=== PATIENT | female | born 1975 | race Caucasian/White ===

== ENCOUNTER 2017-02-05 06:44 | Emergency (ER) | payer OTHER ==
[2017-02-05 06:57] VITALS: BP 138/93
--- NOTE | 2017-02-05 07:06 | ED Physician Documentation ---
PD HPI SKIN - Stated complaint Stated Complaint: TOE SWOLLEN - Chief complaint Chief Complaint: Wound - History obtained from History obtained from: Patient - History of Present Illness Timing - duration: Days Timing - details: Gradual onset, Still present Location: RLE (great toe nailbed corner. Progressive redness and tender, with mild discharge.) Quality / character: Painful, Discolored (red), Swelling, Draining Associated symptoms: No: Fever, N/V/D Similar symptoms before: Has not had sx before Recently seen: Not recently seen Review of Systems Constitutional: denies: Fever, Chills GI: denies: Nausea, Vomiting, Diarrhea PD PAST MEDICAL HISTORY - Past Medical History Past Medical History: Yes Cardiovascular: Hypertension Respiratory: None Neuro: Headache/migraine Endocrine/Autoimmune: None GI: None : None HEENT: Other Psych: None Musculoskeletal: None Derm: None - Past Surgical History 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 HEENT: Tonsil/Adenoidectomy - Present Medications Home Medications: Ambulatory Orders Medication Instructions Recorded Confirmed Topiramate [Topamax] 50 mg PO BID 02/27/14 02/05/17 Furosemide [Lasix] 20 mg PO DAILY 02/05/17 02/05/17 Potassium Chloride 10 meq PO DAILY 02/05/17 02/05/17 Sulfamethox/Trimeth 800/160 1 each PO BID #10 tablet 02/05/17 [Bactrim Ds 800/160] Triamterene/Hydrochlorothiazid 1 tab PO DAILY 02/05/17 02/05/17 [Triamterene-Hctz 37.5-25 mg Tb] - Allergies Allergies/Adverse Reactions: Allergies Allergy/AdvReac Type Severity Reaction Status Date / Time chlorpromazine HCl * AdvReac Intermediate Hallucinati Verified 02/05/17 06:50 [From Thorazine] ons codeine AdvReac Intermediate Itching Verified 02/05/17 06:50 prochlorperazine edisylate * AdvReac Intermediate Hallucinati Verified 02/05/17 06:50 [From Compazine] ons prochlorperazine maleate * AdvReac Intermediate Hallucinati Verified 02/05/17 06 :50 [From Compazine] ons promethazine HCl * AdvReac Intermediate Emesis Verified 02/05/17 06:50 [From Phenergan] - Social History Does the pt smoke?: No Smoking Status: Never smoker Does the pt drink ETOH?: No Does the pt have substance abuse?: No - Immunizations Immunizations are current?: Yes - POLST Patient has POLST: No PD ED PE NORMAL - Vitals Vital signs reviewed: Yes - General General: Alert and oriented X 3, No acute distress, Well developed/nourished - Derm Derm: Normal color, Warm and dry, Other (right great toenail bed corner with redness and swelling, no fluctuance. There is mild ingrown corner of the nail, which I trimmed without needing anesth. No proximal streaking nor tenderness to the foot, but the redness does extend in the soft tissue of the distal phalanx. ) Results - Vitals Vitals: Vital Signs - 24 hr 02/05/17 06:49 Temperature 36.1 C L Heart Rate 107 H Respiratory 18 Rate Blood Pressure 138/93 H O2 Saturation 97 Oxygen O2 Source Room air Departure - Departure Disposition: 01 Home, Self Care Clinical Impression: Paronychia, toe Qualifiers: Laterality: right Qualified Code(s): L03.031 - Cellulitis of right toe Condition: Stable Record reviewed to determine appropriate education?: Yes Instructions: ED Fingernail Infec Follow-Up: THAI GUY [Primary Care Provider] - Prescriptions: Sulfamethox/Trimeth 800/160 [Bactrim Ds 800/160] 1 each PO BID #10 tablet Comments: Continue soaking the toe in warm water 2-3 times a day. He can apply antibiotic ointment to it as well. With the ingrown part of the nail out, the irritation should improve and allow the infection to clear easier. Bactrim twice daily for 4-5 days antibiotic for the infection. Recheck if not better over the next 2-3 days and sooner if worse. Tylenol or ibuprofen if needed for pain.
[2017-02-05] MEDS ORDERED: SULFAMETH/TRIMETH DS 800/160 MG TABLET PO STA (07:21)
[2017-02-05] MEDS ORDERED: SULFAMETH/TRIMETH DS 800/160 MG TABLET PO ONE (07:30)
== END 2017-02-05 07:29 | disposition home or self-care (01) ==
LOC: ED 06:44
DX: L03.031 Cellulitis of right toe (principal)
CPT/HCPCS: 99283; A9270

== ENCOUNTER 2017-04-09 10:44 | Emergency (ER) | payer OTHER ==
[2017-04-09] MEDS ORDERED: DEXAMETHASONE 10 MG/ML VIAL PO STA (11:06)
[2017-04-09] MEDS ORDERED: DEXAMETHASONE 10 MG/ML VIAL ONE (11:18)
--- NOTE | 2017-04-09 11:19 | ED Physician Documentation ---
PD HPI URI - Stated complaint Stated Complaint: THROAT PX/NO VOICE - Chief complaint Chief Complaint: Heent - History obtained from History obtained from: Patient, Family - History of Present Illness Timing - onset: Yesterday Timing duration: Days (1) Timing details: Gradual onset, Still present Associated symptoms: Nasal congestion, Rhinorrhea, Sore throat, Dry cough, Other (loss of voice) Contributing factors: Sick contact (children at home are sick with cough) Improves by: Rest, Medication Worsened by: Activity Similar symptoms before: Diagnosis (URI and OM) Recently seen: Not recently seen - Additional information Additional information: 41-year-old female with permanent PE tubes in her ears as developed a cough congestion and loss of voice. Review of Systems Constitutional: denies: Fever Eyes: denies: Decreased vision Ears: denies: Ear pain Nose: reports: Rhinorrhea / runny nose, Congestion Throat: reports: Sore throat Cardiac: denies: Chest pain / pressure, Palpitations Respiratory: reports: Cough. 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 HEENT: Tonsil/Adenoidectomy - Present Medications Home Medications: Ambulatory Orders Medication Instructions Recorded Confirmed Topiramate [Topamax] 50 mg PO BID 02/27/14 04/09/17 Furosemide [Lasix] 10 mg PO DAILY 02/05/17 04/09/17 Potassium Chloride 10 meq PO DAILY 02/05/17 04/09/17 Sulfamethox/Trimeth 800/160 1 each PO BID #10 tablet 02/05/17 04/09/17 [Bactrim Ds 800/160] Triamterene/Hydrochlorothiazid 1 tab PO DAILY 02/05/17 04/09/17 [Triamterene-Hctz 37.5-25 mg Tb] Amox/Clav 875/125 [Augmentin] 1 each PO Q12H #20 tablet 04/09/17 - Allergies Allergies/Adverse Reactions: Allergies Allergy/AdvReac Type Severity Reaction Status Date / Time chlorpromazine HCl * AdvReac Intermediate Hallucinati Verified 04/09/17 10:50 [From Thorazine] ons codeine AdvReac Intermediate Itching Verified 04/09/17 10:50 prochlorperazine edisylate * AdvReac Intermediate Hallucinati Verified 04/09/17 10:50 [From Compazine] ons prochlorperazine maleate * AdvReac Intermediate Hallucinati Verified 04/09/17 10 :50 [From Compazine] ons promethazine HCl * AdvReac Intermediate Emesis Verified 04/09/17 10:50 [From Phenergan] - Social History Does the pt smoke?: No Smoking Status: Never smoker Does the pt drink ETOH?: No Does the pt have substance abuse?: No - Immunizations Immunizations are current?: Yes - POLST Patient has POLST: No PD ED PE NORMAL - Vitals Vital signs reviewed: Yes (Tachycardic and hypertensive) - General General: Alert and oriented X 3, No acute distress, Well developed/nourished - HEENT HEENT: Atraumatic, PERRL, EOMI, Moist mucous membranes, Dentition benign, Other (The left TM is with a PE tube in without drainage and there is surrounding erythema to the TM. The right has a PE tube and there is no drainage from the tube and there is drainage around the outside of the tube and inflammation of the TM. Pharynx is with mild erythema.) - Neck Neck: Supple, no meningeal sign, No bony TTP - Cardiac Cardiac: RRR, No murmur - Respiratory Respiratory: No respiratory distress, Clear bilaterally - Abdomen Abdomen: Soft, Non tender - Derm Derm: Normal color, Warm and dry, No rash - Extremities Extremities: No deformity, No edema - Neuro Neuro: No motor deficit, No sensory deficit - Psych Psych: Normal mood, Normal affect Results - Vitals Vitals: Vital Signs - 24 hr 04/09/17 04/09/17 10:48 11:32 Temperature 36.0 C L 36.7 C Heart Rate 106 H 103 H Respiratory 18 18 Rate Blood Pressure 130/93 H 136/94 H O2 Saturation 98 96 Oxygen O2 Source Room air PD MEDICAL DECISION MAKING - ED course Complexity details: reviewed old records, reviewed results, re-evaluated patient , considered differential, d/w patient, d/w family ED course: 41-year-old female has lost her voice and has bilateral otitis. She is administered dexamethasone here in the emergency department and we will put her on some antibiotic for otitis. Departure - Departure Disposition: 01 Home, Self Care Clinical Impression: Otitis media, Laryngitis Condition: Stable Instructions: ED Laryngitis, ED Otitis Media Acute Adult Follow-Up: THAI GUY [Primary Care Provider] - Prescriptions: Amox/Clav 875/125 [Augmentin] 1 each PO Q12H #20 tablet Comments: Today in the Emergency Department your blood pressure was elevated. This can happen from the stress of the visit itself, from a current illness or circumstance or from uncontrolled hypertension. If you take blood pressure medications take your usual mediations, have your blood pressure re-checked in an appropriate setting and follow up any elevation with your primary care doctor.
[2017-04-09 11:33] VITALS: BP 136/94
[2017-04-09 11:43] LABS: RAPID STREP SCREEN REAGENT QC YELLOW (YELLOW)
== END 2017-04-09 11:49 | disposition home or self-care (01) ==
LOC: ED 10:44
DX: H66.93 Otitis media, unspecified, bilateral (principal); J04.0 Acute laryngitis; I10 Essential (primary) hypertension; Z96.22 Myringotomy tube(s) status
CPT/HCPCS: 87070; 87430; 99283

== ENCOUNTER 2018-08-12 14:40 | Emergency (ER) | payer OTHER ==
[2018-08-12] MEDS ORDERED: DEXAMETHASONE 10 MG/ML VIAL PO STA (16:18)
--- NOTE | 2018-08-12 16:21 | ED Physician Documentation ---
PD HPI HEENT - Stated complaint Stated Complaint: EAR PAIN/DIZZY - Chief complaint Chief Complaint: Heent - History obtained from History obtained from: Patient, Family - History of Present Illness Timing - onset: How many months ago (1-2) Timing - duration: Months (1) Timing - details: Gradual onset, Still present, Waxing and waning Location: Left ear Improves: Medication Worsens: Swalllowing, Noise Associated symptoms: Congestion, Rhinorrhea, Swollen nodes, Facial swelling, Cough Similar symptoms before: Diagnosis (OM) Recently seen: Not recently seen - Additional information Additional information: 42-year-old female with a long history of otitis media has had multiple sets of tubes in and she does have an active set of tubes in now. She is usually seen for her ears at [facility]. She has had good luck at controlling her symptoms for some time now until about 1 or 2 months ago. Her family has been ill and she has been ignoring her health somewhat. She has developed a cough congestion ear drainage ear pain and dizziness. She has had these typical symptoms previously with infections. Review of Systems Constitutional: reports: Myalgias, Fatigue. denies: Fever Eyes: denies: Decreased vision Ears: reports: Ear pain, Drainage/discharge Nose: reports: Rhinorrhea / runny nose, Congestion Throat: denies: Sore throat Cardiac: denies: Chest pain / pressure, Palpitations Respiratory: reports: Cough. 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/Adenoidectomy - Present Medications Home Medications: Ambulatory Orders Medication Instructions Recorded Confirmed Topiramate [Topamax] 50 mg PO BID 02/27/14 04/09/17 Furosemide [Lasix] 10 mg PO DAILY 02/05/17 04/09/17 RX: Potassium Chloride 10 meq PO DAILY 02/05/17 04/09/17 Sulfamethox/Trimeth 800/160 1 each PO BID #10 tablet 02/05/17 04/09/17 [Bactrim Ds 800/160] Triamterene/Hydrochlorothiazid 1 tab PO DAILY 02/05/17 04/09/17 [Triamterene-Hctz 37.5-25 mg Tb] Amox/Clav 875/125 [Augmentin] 1 each PO Q12H #20 tablet 04/09/17 Amox/Clav 875/125 [Augmentin] 1 each PO Q12H #20 tablet 08/12/18 Hydrocodone/Acetaminophen 1 - 2 each PO Q6H PRN #14 tablet 08/12/18 [Hydrocodon-Acetaminophen 5-325] - Allergies Allergies/Adverse Reactions: Allergies Allergy/AdvReac Type Severity Reaction Status Date / Time chlorpromazine HCl * AdvReac Intermediate Hallucinati Verified 08/12/18 14:49 [From Thorazine] ons codeine AdvReac Intermediate Itching Verified 08/12/18 14:49 prochlorperazine edisylate * AdvReac Intermediate Hallucinati Verified 08/12/18 14:49 [From Compazine] ons prochlorperazine maleate * AdvReac Intermediate Hallucinati Verified 08/12/18 14:49 [From Compazine] ons promethazine HCl * AdvReac Intermediate Emesis Verified 08/12/18 14:49 [From Phenergan] - Social History Does the pt smoke?: No Smoking Status: Never smoker Does the pt drink ETOH?: No Does the pt have substance abuse?: No - Immunizations Immunizations are current?: Yes - POLST Patient has POLST: No PD ED PE NORMAL - Vitals Vital signs reviewed: Yes (tachy and hypertensive ) - General General: Alert and oriented X 3, No acute distress, Well developed/nourished - HEENT HEENT: Atraumatic, PERRL, EOMI, Other (The left TM is inflamed and distorted and there is a tube present that is in position but does not appear to be draining at the current time. The pharynx is with inflamation. 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, No motor deficit, No sensory deficit, Normal speech Eye Opening: Spontaneous Motor: Obeys Commands Verbal: Oriented GCS Score: 15 - Psych Psych: Normal mood, Normal affect Results - Vitals Vitals: Vital Signs - 24 hr 08/12/18 08/12/18 14:48 16:57 Temperature 36.2 C L 36.5 C Heart Rate 120 H 94 Respiratory 18 18 Rate Blood Pressure 140/100 H 134/93 H O2 Saturation 96 99 Oxygen O2 Source Room air PD MEDICAL DECISION MAKING - ED course Complexity details: reviewed old records, considered differential, d/w patient, d/w family ED course: 42-year-old female with a history of otitis recurrent status post tube placement has a new infection today and her left tube does not appear to be draining anything despite an active infection. She is administered dezamethasone 10 mg orally we will place her on some Augmentin and she will follow-up with her ENT. She does appear a bit dehydrated today as well she is encouraged to hydrate excessively. Departure - Departure Disposition: 01 Home, Self Care Clinical Impression: Otitis media Condition: Stable Instructions: ED Otitis Media Acute Adult Follow-Up: THAI GUY [Primary Care Provider] - Prescriptions: Amox/Clav 875/125 [Augmentin] 1 each PO Q12H #20 tablet Hydrocodone/Acetaminophen [Hydrocodon-Acetaminophen 5-325] 1 - 2 each PO Q6H PRN #14 tablet PRN Reason: pain Discharge Date/Time: 08/12/18 16:57
[2018-08-12 16:58] VITALS: BP 134/93
== END 2018-08-12 16:57 | disposition home or self-care (01) ==
LOC: ED 14:40
DX: H66.92 Otitis media, unspecified, left ear (principal); J02.9 Acute pharyngitis, unspecified; E86.0 Dehydration; I10 Essential (primary) hypertension
CPT/HCPCS: 99283

== ENCOUNTER 2018-09-07 16:21 | Emergency (ER) | payer OTHER ==
[2018-09-07] MEDS ORDERED: BENZONATATE 100 MG CAPSULE PO STA (18:41)
[2018-09-07] MEDS ORDERED: DEXAMETHASONE 10 MG/ML VIAL PO STA (18:41)
[2018-09-07] MEDS ORDERED: HYDROcod/ACETAM 5/325 MG TABLET PO STA (18:41)
[2018-09-07] MEDS ORDERED: DOXYCYCLINE 100 MG TABLET PO STA (18:41)
--- NOTE | 2018-09-07 18:42 | ED Physician Documentation ---
PD HPI URI - Stated complaint Stated Complaint: COUGH/BILAT EAR PX - Chief complaint Chief Complaint: General - History obtained from History obtained from: Patient - History of Present Illness Timing - onset: How many weeks ago (2-3 weeks of congestion and sinus pressure. Had abx with some improvement but not complete, then given steroids. Finished them without improvement either. Purulent discharge. Frontal headache.) Timing duration: Weeks Timing details: Gradual onset, Waxing and waning Associated symptoms: Nasal congestion, Sinus pain, Sore throat. 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 HEENT: Tonsil/Adenoidectomy - Present Medications Home Medications: Ambulatory Orders Medication Instructions Recorded Confirmed Topiramate [Topamax] 50 mg PO BID 02/27/14 04/09/17 Furosemide [Lasix] 10 mg PO DAILY 02/05/17 04/09/17 Potassium Chloride 10 meq PO DAILY 02/05/17 04/09/17 Sulfamethox/Trimeth 800/160 1 each PO BID #10 tablet 02/05/17 04/09/17 [Bactrim Ds 800/160] Triamterene/Hydrochlorothiazid 1 tab PO DAILY 02/05/17 04/09/17 [Triamterene-Hctz 37.5-25 mg Tb] Amox/Clav 875/125 [Augmentin] 1 each PO Q12H #20 tablet 04/09/17 Amox/Clav 875/125 [Augmentin] 1 each PO Q12H #20 tablet 08/12/18 Hydrocodone/Acetaminophen 1 - 2 each PO Q6H PRN #14 tablet 08/12/18 [Hydrocodon-Acetaminophen 5-325] Albuterol Sulf [Ventolin Hfa 2 - 3 puffs INH Q4HR PRN #1 inhaler 09/07/18 Inhaler] Benzonatate [Tessalon Perle] 100 - 200 mg PO TID PRN #30 capsule 09/07/18 Cetirizine [ZyrTEC] 10 mg PO DAILY #15 tablet 09/07/18 Dexamethasone [Decadron] 4 mg PO DAILY #5 tablet 09/07/18 Doxycycline Hyclate 100 mg PO BID #20 capsule 09/07/18 - Allergies Allergies/Adverse Reactions: Allergies Allergy/AdvReac Type Severity Reaction Status Date / Time chlorpromazine HCl * AdvReac Intermediate Hallucinati Verified 09/07/18 16:44 [From Thorazine] ons codeine AdvReac Intermediate Itching Verified 09/07/18 16:44 prochlorperazine edisylate * AdvReac Intermediate Hallucinati Verified 09/07/18 16:44 [From Compazine] ons prochlorperazine maleate * AdvReac Intermediate Hallucinati Verified 09/07/18 16:44 [From Compazine] ons promethazine HCl * AdvReac Intermediate Emesis Verified 09/07/18 16:44 [From Phenergan] - Social History Does the pt smoke?: No Smoking Status: Never smoker Does the pt drink ETOH?: No Does the pt have substance abuse?: No - Immunizations Immunizations are current?: Yes - POLST Patient has POLST: No PD ED PE NORMAL - Vitals Vital signs reviewed: Yes - General General: Alert and oriented X 3, No acute distress, Well developed/nourished - HEENT HEENT: Moist mucous membranes, Pharynx benign, Other (sinus tenderness to percussion. ) - Neck Neck: Supple, no meningeal sign, No adenopathy - Cardiac Cardiac: RRR, No murmur - Respiratory Respiratory: Clear bilaterally - Abdomen Abdomen: Soft, Non tender - Derm Derm: Normal color, Warm and dry - Extremities Extremities: No edema, No calf tenderness / cord - Neuro Neuro: Alert and oriented X 3, No motor deficit, Normal speech Results - Vitals Vitals: Vital Signs - 24 hr 09/07/18 09/07/18 16:42 18:58 Temperature 37.6 C H 37.8 C H Heart Rate 116 H 114 H Respiratory 20 22 Rate Blood Pressure 148/74 H 132/85 H O2 Saturation 98 99 Oxygen O2 Source Room air PD MEDICAL DECISION MAKING - ED course Complexity details: considered differential (sounds like persistent sinusitiis.), d/w patient Departure - Departure Disposition: 01 Home, Self Care Clinical Impression: Ear infection Upper respiratory infection Qualifiers: URI type: unspecified URI Qualified Code(s): J06.9 - Acute upper respiratory infection, unspecified Condition: Stable Record reviewed to determine appropriate education?: Yes Instructions: ED Otitis Media Acute Adult, ED URI Viral W Wheezing Follow-Up: THAI GUY [Primary Care Provider] - Prescriptions: Albuterol Sulf [Ventolin Hfa Inhaler] 2 - 3 puffs INH Q4HR PRN #1 inhaler PRN Reason: Shortness Of Air/Wheezing Benzonatate [Tessalon Perle] 100 - 200 mg PO TID PRN #30 capsule PRN Reason: Cough Cetirizine [ZyrTEC] 10 mg PO DAILY #15 tablet Dexamethasone [Decadron] 4 mg PO DAILY #5 tablet Doxycycline Hyclate 100 mg PO BID #20 capsule Comments: Stay well-hydrated. Tylenol if needed for fevers and pains. Puffs 4 times a day for the next 7-10 days and extra times as needed for wheezing and cough. Decadron steroid daily for 5 days for inflammation of the bronchials. Add doxycycline antibiotic for infection of the bronchials and ears. Tessalon if needed for cough. Cetirizine antihistamine to decrease the fluid pressure in the ears and sinuses. Recheck if not improved over the next several days. Discharge Date/Time: 09/07/18 19:22
[2018-09-07 18:59] VITALS: BP 132/85
== END 2018-09-07 19:22 | disposition home or self-care (01) ==
LOC: ED 16:21
DX: H66.90 Otitis media, unspecified, unspecified ear (principal); J06.9 Acute upper respiratory infection, unspecified; I10 Essential (primary) hypertension
CPT/HCPCS: 99283; A9270

== ENCOUNTER 2020-10-19 05:10 | Emergency (ER) | payer OTHER ==
[2020-10-19 05:24] VITALS: BP 109/77
--- OUTSIDE RECORDS SUMMARY | 2020-10-19 05:25 | EXTERNAL MEDICAL SUMMARY RPT | Continuity of Care Document ---
:1975 Demographics Phone Unavailable Preferred Language Unknown Marital Status Unknown [employer] Affiliation Unknown Race Unknown Ethnic Group Unknown Author Organization [facility] Address [address] [place] [address] Phone Social History date description facility [id number]
--- NOTE | 2020-10-19 05:59 | ED Physician Documentation ---
PD HPI OPHTHO - Stated complaint Stated Complaint: BILAT EYE IRRITATION - Chief complaint Chief Complaint: Heent - History obtained from History obtained from: Patient - History of Present Illness Timing - onset: How many weeks ago (1) Timing - duration: Weeks (1) Timing - details: Gradual onset, Still present Location: Both Quality / character: Itching, Other (watering and matted shut) Associated symptoms: Tearing, Matting, FB sensation. No: Redness, Photophobia, Double vision, Decreased vision, Loss of vision, Headache Contributing factors: Wears glasses Similar symptoms before: Has not had sx before Recently seen: Not recently seen - Treatment prior to arrival Treatment prior to arrival: Previously well 45-year-old female has developed tearing from her right eye about 1 week ago and she then developed yellow drainage from both of her eyes and yesterday the drainage became more profuse early this morning she awoke with her eyes matted shut. She has come to the emergency department for treatment. Review of Systems Constitutional: denies: Fever Eyes: reports: Discharge, Irritation. 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 HEENT: Tonsil/Adenoidectomy - Present Medications Home Medications: Ambulatory Orders Medication Instructions Recorded Confirmed Topiramate [Topamax] 50 mg PO BID 02/27/14 04/09/17 Furosemide [Lasix] 10 mg PO DAILY 02/05/17 04/09/17 Potassium Chloride 10 meq PO DAILY 02/05/17 04/09/17 Sulfamethox/Trimeth 800/160 1 each PO BID #10 tablet 02/05/17 04/09/17 [Bactrim Ds 800/160] Triamterene/Hydrochlorothiazid 1 tab PO DAILY 02/05/17 04/09/17 [Triamterene-Hctz 37.5-25 mg Tb] Amox/Clav 875/125 [Augmentin] 1 each PO Q12H #20 tablet 04/09/17 Amox/Clav 875/125 [Augmentin] 1 each PO Q12H #20 tablet 08/12/18 Hydrocodone/Acetaminophen 1 - 2 each PO Q6H PRN #14 tablet 08/12/18 [Hydrocodon-Acetaminophen 5-325] Albuterol Sulf [Ventolin Hfa 2 - 3 puffs INH Q4HR PRN #1 inhaler 09/07/18 Inhaler] Benzonatate [Tessalon Perle] 100 - 200 mg PO TID PRN #30 capsule 09/07/18 Cetirizine [ZyrTEC] 10 mg PO DAILY #15 tablet 09/07/18 Doxycycline Hyclate 100 mg PO BID #20 capsule 09/07/18 dexAMETHasone [Decadron] 4 mg PO DAILY #5 tablet 09/07/18 Neomycin/Poly/Dex Ophth Drops 1 drops EACHEYE QID #5 ml 10/19/20 [Maxitrol Ophth Drops] - Allergies Allergies/Adverse Reactions: Allergies Allergy/AdvReac Type Severity Reaction Status Date / Time chlorpromazine HCl * AdvReac Intermediate Hallucinati Verified 10/19/20 05:24 [From Thorazine] ons codeine AdvReac Intermediate Itching Verified 10/19/20 05:24 prochlorperazine edisylate * AdvReac Intermediate Hallucinati Verified 10/19/20 05:24 [From Compazine] ons prochlorperazine maleate * AdvReac Intermediate Hallucinati Verified 10/19/20 05:24 [From Compazine] ons promethazine HCl * AdvReac Intermediate Emesis Verified 10/19/20 05:24 [From Phenergan] - Social History Does the pt smoke?: No Smoking Status: Never smoker Does the pt drink ETOH?: No Does the pt have substance abuse?: No - Immunizations Immunizations are current?: Yes - POLST Patient has POLST: No PD ED PE NORMAL - Vitals Vital signs reviewed: Yes (normal) - General General: Alert and oriented X 3, No acute distress, Well developed/nourished - HEENT HEENT: Atraumatic, PERRL, EOMI, Other (There is conjunctival irritation and drainage there is not a lot of injection to the sclera. Iris is symmetric pupils are reactive. 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, No motor deficit, No sensory deficit, Normal speech Eye Opening: Spontaneous Motor: Obeys Commands Verbal: Oriented GCS Score: 15 - Psych Psych: Normal mood, Normal affect Results - Vitals Vitals: Vital Signs - 24 hr 10/19/20 05:15 Temperature 36.3 C L Heart Rate 94 Respiratory 16 Rate Blood Pressure 109/77 O2 Saturation 100 Oxygen O2 Source Room air PD MEDICAL DECISION MAKING - ED course Complexity details: considered differential, d/w patient ED course: 45-year-old female who is developed acute conjunctivitis and has had her eyes matted shut is treated for conjunctivitis Departure - Departure Disposition: 01 Home, Self Care Clinical Impression: Conjunctivitis Qualifiers: Conjunctivitis type: acute Acute conjunctivitis type: bacterial Laterality: bilateral Qualified Code(s): H10.33 - Unspecified acute conjunctivitis, bilateral Condition: Stable Instructions: ED Conjunctivitis Bacterial Follow-Up: LOLIS TRAN DO [Primary Care Provider] - Prescriptions: Neomycin/Poly/Dex Ophth Drops [Maxitrol Ophth Drops] 1 drops EACHEYE QID #5 ml
== END 2020-10-19 06:10 | disposition home or self-care (01) ==
LOC: ED 05:10
DX: H10.33 Unspecified acute conjunctivitis, bilateral (principal); I10 Essential (primary) hypertension
CPT/HCPCS: 99282; 99284

== ENCOUNTER 2021-09-10 08:15 | Outpatient (CLI) | payer OTHER ==
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
[2021-09-10 09:24] VITALS: BP 130/97
== END 2021-09-10 08:16 | disposition home or self-care (01) ==
LOC: SC 08:15
PROVIDERS: ATTEND Nurse Practitioner Family
DX: R06.83 Snoring (principal); G47.8 Other sleep disorders; R06.81 Apnea, not elsewhere classified; G47.10 Hypersomnia, unspecified; R53.83 Other fatigue; I49.9 Cardiac arrhythmia, unspecified; E66.9 Obesity, unspecified; Z68.35 Body mass index [BMI] 35.0-35.9, adult
CPT/HCPCS: 99203; 99212

== ENCOUNTER 2021-10-06 08:51 | Outpatient (CLI) | payer OTHER ==
--- NOTE | 2021-10-06 09:22 | SLEEP CARE CONSULTATION ---
Information from patient questionnaire entered by Higinio Rao MA. I have reviewed and concur with the information entered by Higinio Rao MA. This document represents the service I personally performed and the decisions made by , Zoraida Olmstead ARNP. History of Present Illness Service Date and Time: 10/06/2021 0851 Accompanied by: Spouse Initial [place] Sleepiness Scale score: 7 (08/2021) Current [place] Sleepiness Scale score: 5 (09/2021) Additional HPI information: YUNI GARCIA returns for follow up with spouse and results of the recently performed home sleep study. I explained the pathophysiology behind obstructive sleep apnea. We then spent quite a bit of time discussing different treatment options. For mild obstructive sleep apnea, surgery and oral appliance are alternatives to nasal CPAP therapy but in moderate or severe cases, nasal CPAP is the most effective and reliable treatment. Because apnea is primarily in supine position, then positional management therapy could be effective. Methods discussed such as positioning with pillows to prevent supine sleep. I reviewed the impact of weight changes on sleep apnea and strongly recommended losing weight. After some discussion, the patient opted to go with the nasal CPAP therapy. Nasal autoCPAP set at 4-15 cmH20 will be ordered with rationale explained. A manual titration study will be ordered if unable to find optimal pressure with office adjustments. I explained how CPAP machine works and what to expect when using the machine. Using CPAP every night in order to get used to it was emphasized. Patient advised to put CPAP mask on before getting into bed so as not to fall asleep without CPAP. To assist acclimation to CPAP use, it could also be used for a short time during day while reading or watching TV. The patient was instructed to call the CPAP supplier to discuss any mechanical problem that may occur. If the mask given is uncomfortable or is difficult to keep on through the night even with adjustment, contact the CPAP supplier as many will replace with another mask style if notified before 30 days. If snoring or perceives is not getting enough air or too much air from the machine, notify this office. AAS patient education PAP tips reviewed and given to patient. Patient does not drink alcohol. Patient was cautioned about risks of drowsy driving until sleepiness symptoms resolve. Patient denies drowsy driving. Sleep Study - Results Type of Sleep Study: Home sleep study (f/u home study, 09/24/21 [facility] Prior sleep studies: No Polysomnography/Home Sleep Study results: Physician Impression: The quality of the study is good. The length of the study is adequate (> 240 minutes). Please also see the tabulated and graphic data. 1. Obstructive Sleep Apnea-Hypopnea (ICD-10 G47.33), mild, with an AHI of 8.7/hr and darshana SaO2 of 86%. During the study, the patient had 71 apneas (71 obstructive, 0 central, 0 mixed) and 19 hypopneas. The longest episode lasted 83.5 seconds. The patient barely slept supine (supine AHI was 36.4 and non-supine, 8.59). 2. Hypoxemia (ICD-10 R09.02), minimal, with the lowest oxygen saturation of 86 % and 0.5 minutes with SaO2 under 90%. Baseline oxygen saturation was normal (Average oxygen saturation was 95%). Allergies and Home Medications Home medication list reviewed: Yes (no changes) Allergy and home medication list: Allergies chlorpromazine HCl * [From Thorazine] Adverse Reaction (Intermediate, Verified 10/19/20 05:24) Hallucinations codeine Adverse Reaction (Intermediate, Verified 10/19/20 05:24) Itching prochlorperazine edisylate * [From Compazine] Adverse Reaction (Intermediate, Verified 10/19/20 05:24) Hallucinations prochlorperazine maleate * [From Compazine] Adverse Reaction (Intermediate, Verified 10/19/20 05:24) Hallucinations promethazine HCl * [From Phenergan] Adverse Reaction (Intermediate, Verified 10/19/20 05:24) Emesis Review of Systems Review of systems same as previous: No (strep throat) Physical Exam Vital signs obtained and entered by: Melissa RAO CMA AAMA Blood Pressure: 130/98 (RIGHT) Heart Rate: 95 O2 Saturation: 97 (PAPER) Height: 5 ft 8 in Weight: 230 lb Body Mass Index: 34.9 BMI Classification: Obese Impression and Plan 1. Obstructive Sleep Apnea-Hypopnea Syndrome, mild, with lowest oxygen sat uration of 86%. Obviously this is the cause of the patients symptoms of unrefreshed sleep, and excessive daytime sleepiness. Positive pressure therapy could benefit arrythmia, gastric reflux and cardiac disease ([place]). As mentioned above, the patient will be started on nasal autoCPAP therapy with pressure set at 4-15 cmH2O. A manual titration study will be completed if unable to find optimal treatment pressure with office adjustments. Compliance guidelines also reviewed. A copy of compliance guidelines will be given for reference at check out. Because the apnea is more severe supine, I instructed to avoid sleeping supine using pillow positioning until able to start CPAP use. * Nasal auto CPAP therapy, pressure at 4-15 cm H2O. * Attempt to lose weight. * Avoid alcohol consumption near bedtime. * Avoid supine sleep until using CPAP. * The patient is again cautioned about driving until sleepiness completely resolves. * Return one month after CPAP obtained. I will assess response to therapy and compliance at that time. Counseling Topics: Sleeping position, Weight loss health impact Visit Type: In Office Time Spent with Patient (minutes): 23 Provider Statement: I spent 100% of the Face to Face Visit with the patient with greater than 50% spent counseling the patient and coordination of care.
[2021-10-06 09:23] VITALS: BP 130/98
== END 2021-10-06 08:52 | disposition home or self-care (01) ==
LOC: SC 08:51
PROVIDERS: ATTEND Nurse Practitioner Family
DX: G47.33 Obstructive sleep apnea (adult) (pediatric) (principal); E66.9 Obesity, unspecified; Z68.34 Body mass index [BMI] 34.0-34.9, adult
CPT/HCPCS: 99212; 99213

== ENCOUNTER 2022-04-28 08:52 | Outpatient (CLI) | payer OTHER ==
[2022-04-28 09:17] VITALS: BP 126/72
--- NOTE | 2022-04-28 09:17 | SLEEP CARE CONSULTATION ---
Information from patient questionnaire entered by Rossana Orantes. I have reviewed and concur with the information entered by Rossana Orantes. This document represents the service I personally performed and the decisions made by me, Zoraida Olmstead ARNP. History of Present Illness Service Date and Time: 04/28/2022 0852 Previous diagnosis: Mild, Obstructive Sleep Apnea-Hypopnea Syndrome AHI: 8.7 Reason for follow up: six month (F/U HAS NOT GOT CPAP) Accompanied by: Spouse Equipment type: CPAP Equipment obtained from: Other ([employer] set up but did not get her a CPAP or supplies) Prior sleep studies: No Type of Sleep Study: Home sleep study (f/u home study, 09/24/21 [facility],) HPI additional information: YUNI GARCIA was diagnosed to have mild, AHI 8.7, obstructive sleep apnea-hypopnea syndrome and returned today for CPAP therapy six month follow-up. Sleep Study - Results Type of Sleep Study: Home sleep study (f/u home study, 09/24/21 [facility],) Prior sleep studies: No Subjective Initial [place] Sleepiness Scale score: 7 (08/2021) Current [place] Sleepiness Scale score: 2 (04/27/2022) Allergies and Home Medications Drug allergies reviewed: Yes (as listed) Home medication list reviewed: Yes (no changes) Allergy and home medication list: Allergies chlorpromazine HCl * [From Thorazine] Adverse Reaction (Intermediate, Verified 10/19/20 05:24) Hallucinations codeine Adverse Reaction (Intermediate, Verified 10/19/20 05:24) Itching prochlorperazine edisylate * [From Compazine] Adverse Reaction (Intermediate, Verified 10/19/20 05:24) Hallucinations prochlorperazine maleate * [From Compazine] Adverse Reaction (Intermediate, Verified 10/19/20 05:24) Hallucinations promethazine HCl * [From Phenergan] Adverse Reaction (Intermediate, Verified 10/19/20 05:24) Emesis Review of Systems Review of systems same as previous: No (neck surgery procedure -C fusion October 21, 2021) Physical Exam Vital signs obtained and entered by: ROSSANA Izquierdo MA Blood Pressure: 126/72 (left arm) Cuff size: regular Heart Rate: 122 O2 Saturation: 98 Height: 5 ft 8 in Weight: 237 lb 6.4 oz Body Mass Index: 36.1 BMI Classification: Obese Impression and Plan 1. Obstructive Sleep Apnea-Hypopnea Syndrome, mild. Patient was to start CPAP therapy after her last visit but she has been unable to get a CPAP from her chosen DME supplier. She has continually called and talked to them but was always told they did not have a CPAP for her yet. She also had neck surgery in the interim. She has been trying to sleep on her side (positional therapy) because she is less severe on her side and it is more comfortable than sleeping on her back. I will write a new prescription and have her choose a new DME supplier so that she might get started on a CPAP. Patient voiced agreement with plan. Patient's apnea severity and rationale for treatment to reduce apnea, improve sleep quality and reduce cardiovascular and cerebrovascular events was reviewed. I also reviewed the benefit of consistent device use of CPAP for cardiac disease, arrhythmia and gastric reflux. 2. Obesity, unspecified. Currently patients BMI is 36.1. Obesity increases the risk of apnea, CPAP pressure requirements and overall health risks especially cardiovascular and diabetes. Thus patient is advised to lose weight. * Nasal auto CPAP therapy, pressure at 4-15 cm H2O. * Attempt to lose weight. * Avoid supine sleep until using CPAP. * Return one month after CPAP obtained. I will assess response to therapy and compliance at that time. Counseling Topics: Weight loss health impact Prescriptions: Auto CPAP Visit Type: In Office Other Participants: Spouse/Significant Other Time Spent with Patient (minutes): 21 Provider Statement: I spent 100% of the Face to Face Visit with the patient with greater than 50% spent counseling the patient and coordination of care.
== END 2022-04-28 08:53 | disposition home or self-care (01) ==
LOC: SC 08:52
PROVIDERS: ATTEND Nurse Practitioner Family
DX: G47.33 Obstructive sleep apnea (adult) (pediatric) (principal); E66.9 Obesity, unspecified; Z68.36 Body mass index [BMI] 36.0-36.9, adult
CPT/HCPCS: 99212; 99213

== ENCOUNTER 2022-07-05 08:18 | Outpatient (CLI) | payer OTHER ==
[2022-07-05 08:58] VITALS: BP 118/74
--- NOTE | 2022-07-05 08:58 | SLEEP CARE CONSULTATION ---
Information from patient questionnaire entered by Rossana Orantes. I have reviewed and concur with the information entered by Rossana Orantes. This document represents the service I personally performed and the decisions made by me, Zoraida Olmstead ARNP. History of Present Illness Service Date and Time: 07/05/2022 0818 Previous diagnosis: Mild, Obstructive Sleep Apnea-Hypopnea Syndrome AHI: 8.7 (in 2021) Reason for follow up: first compliance Equipment type: CPAP (RESMED Airsense 10, [place] CARD NEEDED FOR DOWNLOAD AND CHANGES) Equipment obtained from: Other ([facility]; got supplies) Mask style: Nasal Backup mask available: No (will keep old mask when replaced) Last cushion change: 1 month Prior sleep studies: Yes Type of Sleep Study: Home sleep study (f/u home study, 09/24/21 [facility],) HPI additional information: YUNI GARCIA was diagnosed to have mild, AHI 8.7, obstructive sleep apnea-hypopnea syndrome and returned today for CPAP therapy first compliance follow-up. Sleep Study - Results Type of Sleep Study: Home sleep study (f/u home study, 09/24/21 [facility],) Prior sleep studies: No CPAP Compliance Data - Data Reviewed with Patient Average duration of nightly device use: 8 HRS 4 MIN Compliance rate %: 97 (05/29/22-07/04/22; 37/37 days used) Current pressure setting (cmH2O): 4-15 (median 6.4, avg 9.8, max 11.4) Average residual AHI: 3.2 Central apnea: 0.9 Obstructive apnea: 1.5 Subjective Patient concerns: reports: dry mouth, nose, throat (dry throat - she states she has chronic dry throat since before cpap), epistaxis (twice, used vaseline and has resolved). denies: aerophagia, mask discomfort, air blowing in eyes, mask leak noise, condensation in mask/hose, nasal congestion Observed to snore while using device: No Current pressure setting perceived as: comfortable On therapy, patient: reports: sleeping better, awakening more refreshed, being more awake and alert during the day, more rested overall. denies: drowsiness while driving Initial [place] Sleepiness Scale score: 7 (08/2021) Current [place] Sleepiness Scale score: 3 (07/05/22) Allergies and Home Medications Drug allergies reviewed: Yes (see list in EMR) Home medication list reviewed: Yes (no changes) Review of Systems Review of systems same as previous: Yes (no changes) Physical Exam Vital signs obtained and entered by: ROSSANA Izquierdo MA Blood Pressure: 118/74 (LEFT ARM) Cuff size: regular Heart Rate: 120 O2 Saturation: 98 Height: 5 ft 8 in Weight: 235 lb Body Mass Index: 35.7 BMI Classification: Obese Impression and Plan 1. Obstructive Sleep Apnea-Hypopnea Syndrome, mild, with good treatment complia nce and good apnea control. On CPAP therapy, the patient has better sleep quality and is more rested overall. The patients pressure will be changed to autoCPAP 8-12 cmH20 to reflect pressures being used. Patient advised to contact me if pressure change is uncomfortable so that it can be adjusted. Goals for apnea control discussed. Patient has significant improvement of their sleep apnea and are satisfied with current CPAP therapy. Patient's apnea severity and rationale for treatment to reduce apnea, improve sleep quality and reduce cardiovascular and cerebrovascular events was reviewed. I also reviewed the benefit of consistent device use of CPAP for cardiac disease, arrhythmia and gastric reflux. 2. Obesity, unspecified. Currently patients BMI is 35.7. Obesity increases the risk of apnea, CPAP pressure requirements and overall health risks especially cardiovascular and diabetes. Thus patient is advised to lose weight. * Change auto CPAP pressure to 8-12 cmH2O * Notify me if snoring with mask or feeling that the pressure is too much or too little * Attempt to lose weight * Call this office if any problems using CPAP * Return for follow up in 1-2 months, or sooner if concerns arise Counseling Topics: Spare mask, Weight loss health impact Visit Type: In Office Time Spent with Patient (minutes): 20 Provider Statement: I spent 100% of the Face to Face Visit with the patient with greater than 50% spent counseling the patient and coordination of care.
== END 2022-07-05 08:19 | disposition home or self-care (01) ==
LOC: SC 08:18
PROVIDERS: ATTEND Nurse Practitioner Family
DX: G47.33 Obstructive sleep apnea (adult) (pediatric) (principal); E66.9 Obesity, unspecified; Z68.35 Body mass index [BMI] 35.0-35.9, adult
CPT/HCPCS: 99212; 99213

== ENCOUNTER 2022-09-23 14:07 | Outpatient (CLI) | payer OTHER ==
[2022-09-23 14:53] VITALS: BP 130/78
--- NOTE | 2022-09-23 14:53 | SLEEP CARE CONSULTATION ---
Information from patient questionnaire entered by Vanessa Orantes. I have reviewed and concur with the information entered by Vanessa Orantes. This document represents the service I personally performed and the decisions made by me, Zoraida Olmstead ARNP. History of Present Illness Service Date and Time: 09/23/2022 1407 Previous diagnosis: Mild, Obstructive Sleep Apnea-Hypopnea Syndrome AHI: 8.7 (in 2021) Reason for follow up: other (2 MONTH F/U ) Accompanied by: Spouse (Filemon) Equipment type: CPAP (RESMED Airsense 10, SD CARD NEEDED FOR DOWNLOAD AND CHANGES) Equipment obtained from: Other ([facility]; getting supplies) Mask style: Nasal Mask brand: Resmed ([id number]) Backup mask available: Yes (other mask) Last cushion change: 1 week ago Prior sleep studies: No Type of Sleep Study: Home sleep study (f/u home study, 09/24/21 [facility],) HPI additional information: YUNI GARCIA was diagnosed to have mild, AHI 8.7, obstructive sleep apnea-hypopnea syndrome and returned today with spouse for CPAP therapy two month follow-up. Sleep Study - Results Type of Sleep Study: Home sleep study (f/u home study, 09/24/21 [facility],) Prior sleep studies: No CPAP Compliance Data - Data Reviewed with Patient Average duration of nightly device use: 9 hours 21 minutes Compliance rate %: 100 (60/60 days used) Current pressure setting (cmH2O): 8-12 Average residual AHI: 4.3 Central apnea: 2.1 Obstructive apnea: 1.6 Hypopnea: 0.5 Average large leak: 4.9 lpm Subjective Patient concerns: denies: aerophagia, mask discomfort, air blowing in eyes, mask leak noise, condensation in mask/hose, nasal congestion, dry mouth, nose, throat, epistaxis Observed to snore while using device: No Current pressure setting perceived as: comfortable On therapy, patient: reports: sleeping better, awakening more refreshed, being more awake and alert during the day, more rested overall. denies: drowsiness while driving Initial [place] Sleepiness Scale score: 7 (08/2021) Current [place] Sleepiness Scale score: 6 (09/23/22) Allergies and Home Medications Known drug allergies: Yes (as listed) Drug allergies reviewed: Yes Home medication list reviewed: Yes (Betahiotine for vertigo) Allergy and home medication list: Allergies chlorpromazine HCl * [From Thorazine] Adverse Reaction (Intermediate, Verified 09/22/22 17:08) Hallucinations codeine Adverse Reaction (Intermediate, Verified 09/22/22 17:08) Itching prochlorperazine edisylate * [From Compazine] Adverse Reaction (Intermediate, Verified 09/22/22 17:08) Hallucinations prochlorperazine maleate * [From Compazine] Adverse Reaction (Intermediate, Verified 09/22/22 17:08) Hallucinations promethazine HCl * [From Phenergan] Adverse Reaction (Intermediate, Verified 09/22/22 17:08) Emesis Review of Systems Review of systems same as previous: Yes (no changes) Physical Exam Vital signs obtained and entered by: VANESSA Izquierdo MA Blood Pressure: 130/78 (LEFT ARM) Cuff size: regular Heart Rate: 93 O2 Saturation: 97 Height: 5 ft 8 in Weight: 249 lb Weight change since last visit: 14 lb gain Body Mass Index: 37.8 BMI Classification: Obese Impression and Plan 1. Obstructive Sleep Apnea-Hypopnea Syndrome, mild, with good treatment compliance and good apnea control. On CPAP therapy, the patient has better sleep quality and is more rested overall. She has significant improvement of her sleep apnea and is satisfied with CPAP therapy. She has other health issues going on but is able to rest as needed with her CPAP. She denies any complaints or issues with CPAP or mask. Patient's apnea severity and rationale for treatment to reduce apnea, improve sleep quality and reduce cardiovascular and cerebrovascular events was reviewed. I also reviewed the benefit of consistent device use of CPAP for cardiac disease, arrhythmia and gastric reflux. 2. Obesity, unspecified. Currently patients BMI is 37.8. Obesity increases the risk of apnea, CPAP pressure requirements and overall health risks especially cardiovascular and diabetes. Thus patient is advised to continue to try to lose weight. * Continue auto CPAP pressure at 8-12 cmH2O * Notify me if snoring with mask or feeling that the pressure is too much or too little * Attempt to lose weight * Call this office if any problems using CPAP * Return for follow up in 3 months, or sooner if concerns arise Counseling Topics: Spare mask, Weight loss health impact Visit Type: In Office Time Spent with Patient (minutes): 12 Provider Statement: I spent 100% of the Face to Face Visit with the patient with greater than 50% spent counseling the patient and coordination of care.
== END 2022-09-23 14:08 | disposition home or self-care (01) ==
LOC: SC 14:07
PROVIDERS: ATTEND Nurse Practitioner Family
DX: G47.33 Obstructive sleep apnea (adult) (pediatric) (principal); E66.9 Obesity, unspecified; Z68.37 Body mass index [BMI] 37.0-37.9, adult
CPT/HCPCS: 99212

== ENCOUNTER 2022-12-02 09:45 | Outpatient (CLI) | payer OTHER ==
[2022-12-02 10:36] VITALS: BP 141/97
--- NOTE | 2022-12-02 10:36 | SLEEP CARE CONSULTATION ---
Information from patient questionnaire entered by Vanessa Orantes. I have reviewed and concur with the information entered by Vanessa Orantes. This document represents the service I personally performed and the decisions made by , Zoraida Olmstead ARNP. History of Present Illness Service Date and Time: 12/02/2022 0945 Previous diagnosis: Mild, Obstructive Sleep Apnea-Hypopnea Syndrome AHI: 8.7 (in 2021) Reason for follow up: three month (F/U) Equipment type: CPAP (RESMED Airsense 10, s/u 05/2022, [place] CARD NEEDED FOR DOWNLOAD AND CHANGES) Equipment obtained from: Other ([facility]; getting supplies) Mask style: Nasal (over the nose) Backup mask available: Yes (old mask) Last cushion change: weekly change Prior sleep studies: No Type of Sleep Study: Home sleep study (f/u home study, 09/24/21 [facility],) HPI additional information: YUNI GARCIA was diagnosed to have mild, AHI 8.7, obstructive sleep apnea-hypopnea syndrome and returned today for CPAP therapy three month follow-up. Sleep Study - Results Type of Sleep Study: Home sleep study (f/u home study, 09/24/21 [facility],) Prior sleep studies: No CPAP Compliance Data - Data Reviewed with Patient Average duration of nightly device use: 8 hours 2 minutes Compliance rate %: 98 (90/90 days used) Current pressure setting (cmH2O): 8-12 (95th % 11.3) Average residual AHI: 3.7 Central apnea: 0.7 Obstructive apnea: 2.4 Hypopnea: 0.5 Average large leak: 8.4 LPM Subjective Patient concerns: denies: aerophagia, mask discomfort, air blowing in eyes, mask leak noise, condensation in mask/hose, nasal congestion, dry mouth, nose, throat, epistaxis Observed to snore while using device: No Current pressure setting perceived as: comfortable On therapy, patient: reports: sleeping better, awakening more refreshed, being more awake and alert during the day, more rested overall. denies: drowsiness while driving Initial [place] Sleepiness Scale score: 7 (08/2021) Current [place] Sleepiness Scale score: 9 Allergies and Home Medications Known drug allergies: Yes (as listed) Drug allergies reviewed: Yes Home medication list reviewed: Yes (no changes) Allergy and home medication list: Allergies chlorpromazine HCl * [From Thorazine] Adverse Reaction (Intermediate, Verified 12/01/22 13:31) Hallucinations codeine Adverse Reaction (Intermediate, Verified 12/01/22 13:31) Itching prochlorperazine edisylate * [From Compazine] Adverse Reaction (Intermediate, Verified 12/01/22 13:31) Hallucinations prochlorperazine maleate * [From Compazine] Adverse Reaction (Intermediate, Verified 12/01/22 13:31) Hallucinations promethazine HCl * [From Phenergan] Adverse Reaction (Intermediate, Verified 12/01/22 13:31) Emesis Review of Systems Review of systems same as previous: Yes (Bone anchored implants over the summer/possibly fall) Physical Exam Vital signs obtained and entered by: Zoraida Mitchell NP Blood Pressure: 141/97 Cuff size: regular (left arm) Heart Rate: 105 O2 Saturation: 97 Height: 5 ft 8 in Weight: 251 lb Body Mass Index: 38.1 BMI Classification: Obese Impression and Plan 1. Obstructive Sleep Apnea-Hypopnea Syndrome, mild, with good treatment compliance and good apnea control. On CPAP therapy, the patient has better sleep quality and is more rested overall. Patient states the pressure has been comfortable but she does feel like she could use a little more pressure. Her AHI is at 3.7 and is using 11.3 cm H2O on average. The patients pressure will be changed to autoCPAP 10-14 cmH20 for patient comfort. Patient advised to contact me if pressure change is uncomfortable so that it can be adjusted. Goals for apnea control discussed. Patient's apnea severity and rationale for treatment to reduce apnea, improve sleep quality and reduce cardiovascular and cerebrovascular events was reviewed. I also reviewed the benefit of consistent device use of CPAP for cardiac disease, arrhythmia and gastric reflux. Patient is going to have bone implant surgery this summer for hearing aids. She may have to not use her machine for a couple of days but she feels she can adjust the headgear comfortably around her bandages. I advised her not to have it too tight where it is uncomfortable while she is healing. She voiced understanding and agreement. 2. Obesity, unspecified. Currently patients BMI is 38.1. Obesity increases the risk of apnea, CPAP pressure requirements and overall health risks especially cardiovascular and diabetes. Thus patient is advised to lose weight. * Change auto CPAP pressure to 10-14 cmH2O * Notify me if snoring with mask or feeling that the pressure is too much or too little * Attempt to lose weight * Call this office if any problems using CPAP * Return for follow up in 6 months, or sooner if concerns arise Counseling Topics: Spare mask, Weight loss health impact Visit Type: In Office Time Spent with Patient (minutes): 20 Provider Statement: I spent 100% of the Face to Face Visit with the patient with greater than 50% spent counseling the patient and coordination of care.
== END 2022-12-02 09:46 | disposition home or self-care (01) ==
LOC: SC 09:45
PROVIDERS: ATTEND Nurse Practitioner Family
DX: G47.33 Obstructive sleep apnea (adult) (pediatric) (principal); E66.9 Obesity, unspecified; Z68.38 Body mass index [BMI] 38.0-38.9, adult
CPT/HCPCS: 99213

== ENCOUNTER 2023-06-06 10:52 | Outpatient (CLI) | payer OTHER ==
--- NOTE | 2023-06-06 11:25 | Sleep Patient Instructions ---
Sleep Center Visit Summary - Patient Visit Information Reason for Visit: 6 month followup - Patient Instructions Additional Instructions: You were here for follow up of CPAP therapy. You will be continued on CPAP therapy with pressure at 10-14 cmH2O. You should follow up with sleep care in 12 months. You may contact us sooner for any questions or concerns. - Clinic Information Contact: Located within [facility] [address] [place] [id number] [email or web address] T: [phone]
--- NOTE | 2023-06-06 11:28 | SLEEP CARE CONSULTATION ---
Information from patient questionnaire entered by Rossana Orantes. I have reviewed and concur with the information entered by Rossana Orantes. This document represents the service I personally performed and the decisions made by me, Zoraida Olmstead ARNP. History of Present Illness Service Date and Time: 06/06/2023 1052 Previous diagnosis: Mild, Obstructive Sleep Apnea-Hypopnea Syndrome AHI: 8.7 (in 2021) Reason for follow up: six month (F/U) Accompanied by: Spouse Equipment type: CPAP (RESMED Airsense 10, s/u 05/2022, [place] CARD NEEDED FOR DOWNLOAD AND CHANGES) Equipment obtained from: Other ([facility]; getting supplies) Mask style: Nasal (over the nose) Backup mask available: Yes (other mask) Last cushion change: today, changes every 3 weeks Prior sleep studies: No Type of Sleep Study: Home sleep study (f/u home study, 09/24/21 [facility],) HPI additional information: YUNI GARCIA was diagnosed to have mild, AHI 8.7, obstructive sleep apnea-hypopnea syndrome and returned today for CPAP therapy six month follow-up. Sleep Study - Results Type of Sleep Study: Home sleep study (f/u home study, 09/24/21 [facility],) Prior sleep studies: No CPAP Compliance Data - Data Reviewed with Patient Average duration of nightly device use: 9 hours 5 minutes Compliance rate %: 99 (180/180 days used) Current pressure setting (cmH2O): 10-14 Average residual AHI: 3.8 Central apnea: 1.2 Obstructive apnea: 2.0 Average large leak: 6.9 L/min Subjective Patient concerns: reports: dry mouth, nose, throat (has chronic dry mouth due to diuretics she is on). denies: aerophagia, mask discomfort, air blowing in eyes, mask leak noise, condensation in mask/hose, nasal congestion, epistaxis Observed to snore while using device: No Current pressure setting perceived as: comfortable On therapy, patient: reports: sleeping better, awakening more refreshed, being more awake and alert during the day, more rested overall. denies: drowsiness while driving Initial [place] Sleepiness Scale score: 7 (08/2021) Current [place] Sleepiness Scale score: 7 (06/06/23) Allergies and Home Medications Known drug allergies: Yes (as listed) Drug allergies reviewed: Yes Home medication list reviewed: Yes (Spironolactone, Lasix, Rosuvastatin, Atorvastatin) Allergy and home medication list: Allergies chlorpromazine HCl * [From Thorazine] Adverse Reaction (Intermediate, Verified 06/05/23 09:03) Hallucinations codeine Adverse Reaction (Intermediate, Verified 06/05/23 09:03) Itching prochlorperazine edisylate * [From Compazine] Adverse Reaction (Intermediate, Verified 06/05/23 09:03) Hallucinations prochlorperazine maleate * [From Compazine] Adverse Reaction (Intermediate, Verified 06/05/23 09:03) Hallucinations promethazine HCl * [From Phenergan] Adverse Reaction (Intermediate, Verified 06/05/23 09:03) Emesis Review of Systems Review of systems same as previous: Yes (CHF) Physical Exam Vital signs obtained and entered by: ROSSANA Izquierdo MA Blood Pressure: 138/76 (RIGHT ARM) Cuff size: regular Heart Rate: 105 O2 Saturation: 98 Height: 5 ft 6 in Weight: 251 lb 3.2 oz Body Mass Index: 40.5 BMI Classification: Morbidly Obese Impression and Plan 1. Obstructive Sleep Apnea-Hypopnea Syndrome, mild, with good treatment compliance and good apnea control. On CPAP therapy, the patient has better sleep quality and is more rested overall. Patient has significant improvement of their sleep apnea and is satisfied with current CPAP therapy. Patient denies problems with nasal congestion, epistaxis, skin irritation or aerophagia. She is doing well and is comfortable with the CPAP. I will not make any changes today, update her supply prescription and followup with her next year. Patient's apnea severity and rationale for treatment to reduce apnea, improve sleep quality and reduce cardiovascular and cerebrovascular events was reviewed. I also reviewed the benefit of consistent device use of CPAP for cardiac disease, arrhythmia and gastric reflux. 2. Obesity, unspecified. Currently patients BMI is 40.5. Obesity increases the risk of apnea, CPAP pressure requirements and overall health risks especially cardiovascular and diabetes. Thus patient is advised to lose weight. * Continue auto CPAP pressure at 10-14 cmH2O * Update supply prescription * Notify me if snoring with mask or feeling that the pressure is too much or too little * Attempt to lose weight * Call this office if any problems using CPAP * Return for follow up in 12 months, or sooner if concerns arise Counseling Topics: Spare mask, Weight loss health impact Prescriptions: Device supplies Follow up with Sleep Care in: 1 year Visit Type: In Office Time Spent with Patient (minutes): 21 Provider Statement: I spent 100% of the Face to Face Visit with the patient with greater than 50% spent counseling the patient and coordination of care.
[2023-06-06 11:34] VITALS: BP 138/76; O2SAT 98
== END 2023-06-06 10:53 | disposition home or self-care (01) ==
LOC: SC 10:52
PROVIDERS: ATTEND Nurse Practitioner Family
DX: G47.33 Obstructive sleep apnea (adult) (pediatric) (principal); E66.01 Morbid (severe) obesity due to excess calories; Z68.41 Body mass index [BMI] 40.0-44.9, adult
CPT/HCPCS: 99212; 99213